=== PATIENT | female | born 1960 | race African-American/Black ===

== ENCOUNTER 2018-10-22 11:57 | Emergency (ER) | payer SELFPAY ==
[~2018-10-22] VITALS: Ht 180.3 cm; Wt 79.4 kg
[2018-10-22] MEDS ORDERED: METFORMIN HCL500 M1 ORAL (12:11)
[2018-10-22] MEDS ORDERED: SIMVASTATIN20 MG ORAL (12:11)
[2018-10-22 12:13] VITALS: BP 170/85
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
[2018-10-22] MEDS ORDERED: Methocarbamol 500mg tab ORAL ONE (12:45)
--- NOTE | 2018-10-22 12:50 | NUR ---
ED Nurse Note: Pt went down to radiology.
--- NOTE | 2018-10-22 13:01 | NUR ---
ED Nurse Note: Pt back from radiology.
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
[2018-10-22] MEDS ORDERED: IBUPROFEN600 MG ORAL (14:03)
[2018-10-22] MEDS ORDERED: ROBAXIN500 MG PO (14:03)
[2018-10-22] MEDS ORDERED: LIDOCAINE700 M1 TP (14:03)
[2018-10-22 14:06] VITALS: BP 165/80
--- NOTE | 2018-10-22 14:07 | NUR ---
ER DISCHARGE NOTE: Patient is cleared to be discharged per ERMD, pt is aox4, on room air, with stable vital signs. pt was given dc and prescription instructions, pt was able to verbalize understanding, pt id band removed without complications. pt is able to ambulate with steady gait. pt took all belongings.
== END 2018-10-22 14:07 | disposition home or self-care (01) ==
LOC: EMR 12:30
DX: M54.5 Low back pain (principal); V43.52XA Car driver injured in collision with other type car in traffic accident, initial encounter; Y92.410 Unspecified street and highway as the place of occurrence of the external cause; E11.9 Type 2 diabetes mellitus without complications
CPT/HCPCS: 72131; 72192; 99284